=== PATIENT | male | born 1955 | race Caucasian/White ===

== ENCOUNTER 2016-08-27 08:58 | Emergency (ER) | payer MEDICAID, MEDICARE ==
[~2016-08-27] VITALS: Ht 170.2 cm; Wt 80.7 kg
[~2016-08-27 08:58] MED LIST: BACL-19 PO; BETH25TA16 PO; GABA600T2 PO; HYDR-3307 PO; LEVO150T47 PO; TERA10CA3 PO
[2016-08-27] MEDS ORDERED: SODIUM CHLORIDE FLUSH 10ML SYR IVF ONE (09:30)
[2016-08-27] MEDS ORDERED: SODIUM CHLORIDE 0.9% 1,000ML IVBOLUS ONE (09:30)
[2016-08-27 10:10] LABS: HEMOGLOBIN 13.5 g/dL (13.7-18.0)
[2016-08-27 10:21] LABS: ASPARTATE AMINO TRANSFERASE 18 U/L (15-37); BLOOD UREA NITROGEN 13 mg/dL (7-18)
[2016-08-27] MEDS ORDERED: OMNIPAQUE 350 MG/ML, 100ML BOTTLE ONE (11:13)
[2016-08-27] MEDS ORDERED: FENTANYL PF 100 MCG/2ML IV ONE (12:00)
[2016-08-27 12:32] VITALS: BP 162/89
[2016-08-27] MEDS ORDERED: FENTANYL PF 100 MCG/2ML ONE (12:40)
== END 2016-08-27 14:51 | disposition home or self-care (01) ==
LOC: ED 10:09
DX: R33.9 Retention of urine, unspecified (principal); I10 Essential (primary) hypertension
CPT/HCPCS: 36415; 51702; 74177; 80053; 81003; 83690; 85025; 85610; 96361; 96374; 99285; J3010; J7030; Q9967

== ENCOUNTER 2016-10-08 09:24 | Inpatient (IN) | payer MEDICARE ==
[~2016-10-08] VITALS: Ht 175.3 cm; Wt 88.7 kg
[2016-10-08] MEDS ORDERED: HYDROmorphone 1 MG/ML, 1ML ONE ×2 (09:45→10:51)
[2016-10-08] MEDS ORDERED: ONDANSETRON 2MG/ML, 2ML ONE (09:45)
[2016-10-08] MEDS: HYDROmorphone 1 MG/ML, 1ML IVPush PRN ×2 (09:58→11:38)
[2016-10-08] MEDS ORDERED: SODIUM CHLORIDE FLUSH 10ML SYR IVF ONE (10:00)
[2016-10-08] MEDS ORDERED: SODIUM CHLORIDE 0.9% 1,000ML IVBOLUS ONE ×2 (10:00→15:30)
[2016-10-08] MEDS ORDERED: ONDANSETRON 2MG/ML, 2ML IVPush ONE (10:00)
[2016-10-08 10:32] LABS: BLOOD UREA NITROGEN 13 mg/dL (7-18)
[2016-10-08] MEDS ORDERED: PREG50CA PO (11:40)
[2016-10-08] MEDS ORDERED: SODIUM CHLORIDE 0.9%, 500ML IVBOLUS ONE (12:30)
[2016-10-08] MEDS ORDERED: CEFTRIAXONE PMX 1GM/50ML 50 ML IVPB ONE (13:00)
[2016-10-08] MEDS ORDERED: HYDROmorphone 1 MG/ML, 1ML IVPush PRN (13:00)
[2016-10-08 14:00] VITALS: BP 98/66
[2016-10-08] MEDS ORDERED: SODIUM CHLORIDE 0.9% 1,000 ML IV SCH (14:15)
[2016-10-08] MEDS ORDERED: ACETAMINOPHEN 325 MG TABLET PO PRN (14:30)
[2016-10-08 15:15] LABS: ASPARTATE AMINO TRANSFERASE 74 U/L (15-37)
[2016-10-08] MEDS: HEPARIN 5,000 UNITS/ML, 1ML SQ SCH ×2 (15:38→23:40)
[2016-10-08] MEDS: GABAPENTIN 400 MG CAPSULE PO SCH ×2 (15:39→21:33)
[2016-10-08] MEDS: BACLOFEN 10 MG TABLET PO SCH ×2 (15:39→21:33)
[2016-10-08] MEDS: BETHANECHOL 25 MG TABLET PO SCH ×2 (15:39→21:33)
[2016-10-08] MEDS: MORPHINE SULFATE 4 MG/ML, 1ML IVPush PRN ×2 (15:50→21:34)
[2016-10-08 19:19] VITALS: BP 122/63
[2016-10-09 01:58] VITALS: BP 110/72
[2016-10-09] MEDS: MORPHINE SULFATE 4 MG/ML, 1ML IVPush PRN ×4 (02:07→12:11)
[2016-10-09 05:01] LABS: BLOOD UREA NITROGEN 11 mg/dL (7-18)
[2016-10-09 07:02] VITALS: BP 160/89
[2016-10-09] MEDS: HEPARIN 5,000 UNITS/ML, 1ML SQ SCH ×2 (08:07→15:30)
[2016-10-09] MEDS: BACLOFEN 10 MG TABLET PO SCH (08:08)
[2016-10-09] MEDS: GABAPENTIN 400 MG CAPSULE PO SCH (08:08)
[2016-10-09] MEDS: BETHANECHOL 25 MG TABLET PO SCH (08:09)
[2016-10-09] MEDS ORDERED: SENNA/DOCUSATE TABLET PO SCH (09:00)
[2016-10-09] MEDS ORDERED: LEVOTHYROXINE 150 MCG TABLET PO SCH (09:00)
[2016-10-09] MEDS ORDERED: HYDROcodone/APAP 10/325 MG TABLET PO SCH (09:00)
[2016-10-09 13:06] VITALS: BP 121/76
[2016-10-09] MEDS ORDERED: GABAPENTIN 400 MG CAPSULE PO SCH (13:40)
[2016-10-09] MEDS ORDERED: HYDROcodone/APAP 10/325 MG TABLET PO PRN (13:47)
[2016-10-09] MEDS ORDERED: BACLOFEN 10 MG TABLET PO SCH ×2 (14:00→16:00)
[2016-10-09] MEDS ORDERED: SODIUM CHLORIDE 0.9% 1,000 ML IV SCH (14:15)
== END 2016-10-09 17:00 | disposition home or self-care (01) | DRG 557 ==
LOC: ED 09:56 → EDIP 12:33 → 3NE 13:17 → DCLOUNGE 10-09 16:27
PROVIDERS: ADMIT Family Medicine; ATTEND Family Medicine
PROC: 0T9B70Z Drainage of Bladder with Drainage Device, Via Natural or Artificial Opening (ICD-10-PCS; principal; 2016-10-08)
DX: M62.82 Rhabdomyolysis (principal); G82.50 Quadriplegia, unspecified; W05.0XXA Fall from non-moving wheelchair, initial encounter; E03.9 Hypothyroidism, unspecified; G89.29 Other chronic pain; I10 Essential (primary) hypertension; K08.9 Disorder of teeth and supporting structures, unspecified; N40.1 Benign prostatic hyperplasia with lower urinary tract symptoms; R33.8 Other retention of urine; R29.6 Repeated falls; S00.81XA Abrasion of other part of head, initial encounter; Z80.0 Family history of malignant neoplasm of digestive organs; Z79.899 Other long term (current) drug therapy; Y93.89 Activity, other specified; Y92.89 Other specified places as the place of occurrence of the external cause; Y99.8 Other external cause status; Z80.52 Family history of malignant neoplasm of bladder; Z87.891 Personal history of nicotine dependence; Z98.1 Arthrodesis status; Z88.1 Allergy status to other antibiotic agents; Z88.7 Allergy status to serum and vaccine; Z91.041 Radiographic dye allergy status
CPT/HCPCS: 36415; 70450; 70486; 71010; 72125; 80048; 80053; 80307; 81003; 82550; 83605; 83874; 84145; 84443; 85025; 87040; 93005; 96361; 96374; 96375; J0696; J1170; J1644; J2405; J7030

== ENCOUNTER 2016-10-31 13:20 | Inpatient (IN) | payer MEDICARE ==
[~2016-10-31] VITALS: Ht 175.3 cm; Wt 87.6 kg
[~2016-10-31 13:20] MED LIST changes: +PREG50CA PO
[2016-10-31] MEDS ORDERED: SODIUM CHLORIDE 0.9% 1,000 ML IV ONE (13:34)
[2016-10-31] MEDS ORDERED: ONDANSETRON 2MG/ML, 2ML ONE (13:57)
[2016-10-31] MEDS ORDERED: HYDROmorphone 1 MG/ML, 1ML ONE ×2 (13:57→16:12)
[2016-10-31] MEDS ORDERED: CEFTRIAXONE 1,000 MG in SODIUM CHLORIDE 0.9% 50 ML IVPB ONE (14:00)
[2016-10-31] MEDS ORDERED: SODIUM CHLORIDE FLUSH 10ML SYR IVF ONE (14:00)
[2016-10-31] MEDS ORDERED: ONDANSETRON 2MG/ML, 2ML IVPush ONE (14:00)
[2016-10-31] MEDS ORDERED: PLEASE ENTER HEIGHT AND WEIGHT MC SCH (14:00)
[2016-10-31] MEDS: HYDROmorphone 1 MG/ML, 1ML IVPush PRN ×2 (14:05→16:45)
[2016-10-31 14:19] LABS: BLOOD UREA NITROGEN 11 mg/dL (7-18)
[2016-10-31] MEDS ORDERED: PREG50CA PO (15:03)
[2016-10-31] MEDS ORDERED: ACETAMINOPHEN 325 MG TABLET ONE (16:42)
[2016-10-31] MEDS ORDERED: SODIUM CHLORIDE FLUSH 10ML SYR IVF PRN (17:00)
[2016-10-31] MEDS ORDERED: CEFTRIAXONE 1,000 MG in SODIUM CHLORIDE 0.9% 50 ML IV SCH (19:00)
[2016-10-31] MEDS ORDERED: ENOXAPARIN 40 MG/0.4 ML SQ SCH (19:30)
[2016-10-31] MEDS: BACLOFEN 10 MG TABLET PO SCH (20:41)
[2016-10-31] MEDS: GABAPENTIN 400 MG CAPSULE PO SCH (20:42)
[2016-10-31] MEDS: BETHANECHOL 25 MG TABLET PO SCH (20:42)
[2016-10-31] MEDS: SODIUM CHLORIDE 0.9% 1,000 ML IV SCH (21:00)
[2016-10-31] MEDS: DOXYCYCLINE 100 MG in DEXTROSE 5% 250 ML IV SCH (21:00)
[2016-11-01 00:44] VITALS: BP 109/67
[2016-11-01 03:16] LABS: ASPARTATE AMINO TRANSFERASE 15 U/L (15-37); BLOOD UREA NITROGEN 10 mg/dL (7-18)
[2016-11-01 03:50] VITALS: BP 124/71
[2016-11-01] MEDS ORDERED: LEVOTHYROXINE 150 MCG TABLET PO SCH (06:00)
[2016-11-01 06:56] VITALS: BP 138/84
[2016-11-01] MEDS: BACLOFEN 10 MG TABLET PO SCH (08:03)
[2016-11-01] MEDS: SODIUM CHLORIDE 0.9% 1,000 ML IV SCH (08:03)
[2016-11-01] MEDS: GABAPENTIN 400 MG CAPSULE PO SCH (08:03)
[2016-11-01] MEDS: DOXYCYCLINE 100 MG in DEXTROSE 5% 250 ML IV SCH (08:03)
[2016-11-01] MEDS: BETHANECHOL 25 MG TABLET PO SCH (08:04)
[2016-11-01] MEDS ORDERED: TERAZOSIN HCL 10 MG PO SCH (09:00)
[2016-11-01] MEDS ORDERED: HYDROcodone/APAP 10/325 MG TABLET PO SCH (09:00)
[2016-11-01] MEDS ORDERED: morphine SULFATE 10 MG/ML, 1ML IVPush ONE (09:30)
[2016-11-01] MEDS ORDERED: BETHANECHOL 25 MG TABLET PO SCH (12:00)
[2016-11-01] MEDS ORDERED: BACLOFEN 10 MG TABLET PO SCH (12:00)
[2016-11-01] MEDS ORDERED: GABAPENTIN 400 MG CAPSULE PO SCH (12:00)
[2016-11-01] MEDS ORDERED: DOXY100T PO (13:13)
[2016-11-01] MEDS ORDERED: CEFD300C37 PO (13:13)
[2016-11-01 14:00] VITALS: BP 101/65
== END 2016-11-01 16:01 | disposition home or self-care (01) | DRG 602 ==
LOC: ED 16:10 → EDIP 16:40 → 3NW 20:12
PROVIDERS: ADMIT Hospitalist; ATTEND Hospitalist
DX: L03.115 Cellulitis of right lower limb (principal); G82.50 Quadriplegia, unspecified; G89.4 Chronic pain syndrome; I10 Essential (primary) hypertension; Z86.14 Personal history of Methicillin resistant Staphylococcus aureus infection; Z87.891 Personal history of nicotine dependence; Z79.899 Other long term (current) drug therapy; Z88.1 Allergy status to other antibiotic agents; Z88.0 Allergy status to penicillin; Z88.8 Allergy status to other drugs, medicaments and biological substances; Z87.828 Personal history of other (healed) physical injury and trauma; E03.9 Hypothyroidism, unspecified
CPT/HCPCS: 36415; 80048; 80053; 82040; 83605; 83735; 84100; 84145; 85025; 85610; 85730; 87040; 96365; 96375; J0696; J1170; J1650; J2405; J7060; J2270; J7030

== ENCOUNTER 2016-11-01 22:13 | Emergency (ER) | payer MEDICARE ==
[~2016-11-01] VITALS: Ht 175.3 cm; Wt 81.4 kg
[~2016-11-01 22:13] MED LIST changes: +CEFD300C37 PO; +DOXY100T PO
[2016-11-01] MEDS ORDERED: DOXYCYCLINE 100MG TABLET PO ONE (22:30)
[2016-11-01] MEDS ORDERED: CEFDINIR 300 MG CAPSULE PO ONE (22:30)
[2016-11-01 23:10] VITALS: BP 106/71
== END 2016-11-01 23:49 | disposition home or self-care (01) ==
LOC: ED 23:04
DX: L03.115 Cellulitis of right lower limb (principal); Z72.89 Other problems related to lifestyle; I10 Essential (primary) hypertension; Z88.1 Allergy status to other antibiotic agents; Z91.041 Radiographic dye allergy status; Z88.8 Allergy status to other drugs, medicaments and biological substances
CPT/HCPCS: 99283

== ENCOUNTER 2016-11-20 01:23 | Inpatient (IN) | payer MEDICARE ==
[~2016-11-20] VITALS: Ht 175.3 cm; Wt 88.6 kg
[2016-11-20] VITALS (10 sets, daily range): BP systolic 83–137; BP diastolic 48–83
[2016-11-20] MEDS ORDERED: METHYLNALTREXONE 12 MG/0.6 ML SQ ONE (02:30)
[2016-11-20] MEDS ORDERED: DICYCLOMINE 10 MG/ML, 2ML IM ONE (02:30)
[2016-11-20 02:38] LABS: BLOOD UREA NITROGEN 15 mg/dL (7-18)
[2016-11-20 02:41] LABS: ASPARTATE AMINO TRANSFERASE 18 U/L (15-37)
[2016-11-20] MEDS ORDERED: PINK LADY ENEMA 1,000 ML PR ONE (03:30)
[2016-11-20] MEDS: SODIUM CHLORIDE 0.9% 1,000 ML IV SCH ×2 (08:35→17:33)
[2016-11-20] MEDS: PREGABALIN 25 MG CAPSULE PO SCH ×3 (09:00→20:25)
[2016-11-20] MEDS ORDERED: POLYETHYLENE GLYCOL 17 GM PACKET PO PRN (09:00)
[2016-11-20] MEDS ORDERED: LABETALOL 5MG/ML, 20ML IVPush PRN (09:00)
[2016-11-20] MEDS ORDERED: BISACODYL 10 MG SUPP PR PRN (09:00)
[2016-11-20] MEDS ORDERED: LORazepam 1MG TABLET PO PRN (09:00)
[2016-11-20] MEDS ORDERED: ONDANSETRON ODT 4 MG PO PRN (09:00)
[2016-11-20] MEDS ORDERED: DOCUSATE 100 MG CAPSULE PO PRN (09:00)
[2016-11-20] MEDS ORDERED: ONDANSETRON 2MG/ML, 2ML IVPush PRN (09:00)
[2016-11-20] MEDS ORDERED: ACETAMINOPHEN 325 MG TABLET PO PRN (09:00)
[2016-11-20] MEDS: HYDROmorphone 2 MG/ML, 1ML IVPush PRN ×3 (09:04→23:29)
[2016-11-20] MEDS ORDERED: SODIUM CHLORIDE 0.9% 1,000ML IVBOLUS ONE ×2 (09:30→12:30)
[2016-11-20 11:14] LABS: DIFF TOTAL CELLS COUNTED 100 CELL DIFF
[2016-11-20 11:16] LABS: ANISOCYTOSIS 1+; VERIFY COUNTS? YES
[2016-11-20] MEDS: SENNA/DOCUSATE TABLET PO SCH (11:21)
[2016-11-20] MEDS: LEVOTHYROXINE 150 MCG TABLET PO SCH (11:21)
[2016-11-20] MEDS: TERAZOSIN 5MG CAPSULE PO SCH (11:22)
[2016-11-20] MEDS: ENOXAPARIN 40 MG/0.4 ML SQ SCH (11:22)
[2016-11-20] MEDS: BETHANECHOL 25 MG TABLET PO SCH ×3 (11:22→20:24)
[2016-11-20] MEDS: BACLOFEN 10 MG TABLET PO SCH ×3 (11:22→20:24)
[2016-11-20] MEDS: GABAPENTIN 400 MG CAPSULE PO SCH ×3 (12:15→20:25)
[2016-11-20] MEDS: HYDROcodone/APAP 5/325 TABLET PO PRN ×2 (12:15→20:35)
[2016-11-20] MEDS ORDERED: PIPERACILLIN/TAZO 3.375 GM in SODIUM CHLORIDE 0.9% 50 ML IV SCH (12:30)
[2016-11-20] MEDS ORDERED: VANCOMYCIN PER PHARMACY MC PRN (12:30)
[2016-11-20] MEDS: PIPERACILLIN/TAZO/PMX 3.375GM 50 ML IV SCH ×2 (12:41→20:25)
[2016-11-20] MEDS ORDERED: PHARMACOKINETIC MONITORING MC PRN (13:00)
[2016-11-20] MEDS ORDERED: PHARMACOKINETIC CONSULTATION MC ONE (13:00)
[2016-11-20] MEDS: VANCOMYCIN 1,800 MG in SODIUM CHLORIDE 0.9% 250 ML IV SCH (13:33)
[2016-11-20] MEDS: morphine SULFATE 10 MG/ML, 1ML IVPush PRN ×2 (14:55→18:18)
[2016-11-20 18:20] LABS: OCCBLD OBC PASS
[2016-11-20] MEDS ORDERED: OMNIPAQUE 350 MG/ML, 100ML BOTTLE ONE (18:45)
[2016-11-21 00:17] LABS: OCCBLD OBC PASS
[2016-11-21 01:42] VITALS: BP 150/87
[2016-11-21] MEDS: PIPERACILLIN/TAZO/PMX 3.375GM 50 ML IV SCH ×4 (01:53→20:21)
[2016-11-21] MEDS: SODIUM CHLORIDE 0.9% 1,000 ML IV SCH ×2 (04:29→15:24)
[2016-11-21] MEDS: HYDROmorphone 2 MG/ML, 1ML IVPush PRN (05:08)
[2016-11-21 05:15] LABS: BLOOD UREA NITROGEN 15 mg/dL (7-18)
[2016-11-21 07:12] VITALS: BP 167/79
[2016-11-21] MEDS: BETHANECHOL 25 MG TABLET PO SCH ×3 (07:57→17:44)
[2016-11-21] MEDS: LEVOTHYROXINE 150 MCG TABLET PO SCH ×2 (07:58→11:06)
[2016-11-21] MEDS: GABAPENTIN 400 MG CAPSULE PO SCH ×3 (07:59→17:43)
[2016-11-21] MEDS: PREGABALIN 25 MG CAPSULE PO SCH ×3 (08:00→17:43)
[2016-11-21] MEDS: BACLOFEN 10 MG TABLET PO SCH ×3 (08:01→17:43)
[2016-11-21] MEDS: TERAZOSIN 5MG CAPSULE PO SCH (08:03)
[2016-11-21] MEDS: SENNA/DOCUSATE TABLET PO SCH (08:04)
[2016-11-21] MEDS: ENOXAPARIN 40 MG/0.4 ML SQ SCH (08:05)
[2016-11-21] MEDS: morphine SULFATE 10 MG/ML, 1ML IVPush PRN ×3 (08:14→20:21)
[2016-11-21] MEDS: HYDROcodone/APAP 5/325 TABLET PO PRN ×4 (11:05→22:41)
[2016-11-21] MEDS: VANCOMYCIN 1,800 MG in SODIUM CHLORIDE 0.9% 250 ML IV SCH (12:46)
[2016-11-21 13:08] VITALS: BP 144/81
[2016-11-21 19:24] VITALS: BP 160/86
[2016-11-22 00:17] VITALS: BP 173/94
[2016-11-22] MEDS: SODIUM CHLORIDE 0.9% 1,000 ML IV SCH ×2 (02:41→12:25)
[2016-11-22] MEDS: PIPERACILLIN/TAZO/PMX 3.375GM 50 ML IV SCH ×3 (02:41→14:00)
[2016-11-22 05:00] VITALS: BP 152/93
[2016-11-22] MEDS: HYDROcodone/APAP 5/325 TABLET PO PRN ×3 (05:01→16:34)
[2016-11-22] MEDS: LEVOTHYROXINE 150 MCG TABLET PO SCH (05:01)
[2016-11-22 07:20] VITALS: BP 193/109
[2016-11-22] MEDS: TERAZOSIN 5MG CAPSULE PO SCH (08:26)
[2016-11-22] MEDS: PREGABALIN 25 MG CAPSULE PO SCH ×3 (08:27→16:34)
[2016-11-22] MEDS: BACLOFEN 10 MG TABLET PO SCH ×3 (08:27→16:34)
[2016-11-22] MEDS: GABAPENTIN 400 MG CAPSULE PO SCH ×3 (08:27→16:34)
[2016-11-22] MEDS: BETHANECHOL 25 MG TABLET PO SCH ×3 (08:27→16:34)
[2016-11-22] MEDS: ENOXAPARIN 40 MG/0.4 ML SQ SCH (08:37)
[2016-11-22] MEDS: SENNA/DOCUSATE TABLET PO SCH (08:43)
[2016-11-22] MEDS: morphine SULFATE 10 MG/ML, 1ML IVPush PRN (08:58)
[2016-11-22 09:15] VITALS: BP 163/72
[2016-11-22] MEDS: VANCOMYCIN 1,800 MG in SODIUM CHLORIDE 0.9% 250 ML IV SCH (12:30)
[2016-11-22] MEDS ORDERED: CIPR500T3 PO (13:01)
[2016-11-22 13:13] VITALS: BP 164/92
== END 2016-11-22 17:05 | disposition home or self-care (01) | DRG 391 ==
LOC: ED 01:59 → 3NE 08:35 → 4EST 10:53
PROVIDERS: ADMIT Internal Medicine; ATTEND Family Medicine
PROC: 0T9B70Z Drainage of Bladder with Drainage Device, Via Natural or Artificial Opening (ICD-10-PCS; principal; 2016-11-20)
DX: K52.9 Noninfective gastroenteritis and colitis, unspecified (principal); G82.50 Quadriplegia, unspecified; K59.00 Constipation, unspecified; D64.9 Anemia, unspecified; E03.9 Hypothyroidism, unspecified; F41.9 Anxiety disorder, unspecified; G89.29 Other chronic pain; I10 Essential (primary) hypertension; M19.90 Unspecified osteoarthritis, unspecified site; Z80.0 Family history of malignant neoplasm of digestive organs; Z80.52 Family history of malignant neoplasm of bladder; Z86.14 Personal history of Methicillin resistant Staphylococcus aureus infection; Z87.891 Personal history of nicotine dependence; Z88.3 Allergy status to other anti-infective agents; Z88.8 Allergy status to other drugs, medicaments and biological substances; R33.9 Retention of urine, unspecified; M24.50 Contracture, unspecified joint
CPT/HCPCS: 36415; 71010; 74020; 74177; 80048; 80053; 81003; 82272; 82378; 83605; 83735; 84100; 84145; 85025; 87040; 87324; 96372; J1170; J1650; J2543; J3370; Q9967; J0500; J2270; J7030; J7050

== ENCOUNTER 2017-05-03 17:47 | Emergency (ER) | payer MEDICARE ==
[~2017-05-03] VITALS: Ht 175.3 cm; Wt 87.0 kg
[~2017-05-03 17:47] MED LIST changes: +CIPR500T3 PO; -LEVO150T47 PO; +LEVO150T61 PO
[2017-05-04] MEDS ORDERED: ACETAMINOPHEN 325 MG TABLET ONE (01:25)
[2017-05-04] MEDS ORDERED: ACETAMINOPHEN 325 MG TABLET PO ONE (01:30)
[2017-05-04 02:26] VITALS: BP 161/101
== END 2017-05-04 02:28 | disposition home or self-care (01) ==
LOC: ED 05-04 02:15
DX: K59.00 Constipation, unspecified (principal); I10 Essential (primary) hypertension
CPT/HCPCS: 74020; 81003; 99285